=== PATIENT | male | born 1990 | race Caucasian/White ===

== ENCOUNTER 2021-04-07 13:29 | Emergency (ER) | payer OTHER ==
[2021-04-07 13:40] VITALS: BP 113/74
[2021-04-07 13:56] LABS: RAPID STREP SCREEN Negative (Negative)
--- NOTE | 2021-04-07 14:27 | ED Physician Documentation ---
History of Present Illness - Stated complaint Stated Complaint: HEADACHE,SORE THROAT, COUGH - Chief complaint Chief Complaint: General - History obtained from History obtained from: Patient - Additonal information Additional information: Patient comes emergency department chief complaint of dry cough, sore throat, feeling of fever and chills, and body aches for the last 2 weeks since getting the second of his 2 Covid vaccine injections. Patient states that he was not ill prior to getting the vaccine. He lives at home with his who is not been sick. He states he has been working remotely online from home. Patient denies any nausea or vomiting. No diarrhea. He has been taking acetaminophen and Mucinex. No other complaints at this time. Review of Systems Ten Systems: 10 systems reviewed and negative Constitutional: reports: Myalgias Eyes: reports: Reviewed and negative Ears: reports: Reviewed and negative Nose: reports: Rhinorrhea / runny nose, Congestion Throat: reports: Sore throat Cardiac: reports: Reviewed and negative Respiratory: reports: Cough (dry) GI: reports: Reviewed and negative. denies: Nausea, Vomiting : reports: Reviewed and negative Skin: reports: Reviewed and negative Musculoskeletal: reports: Reviewed and negative Neurologic: reports: Reviewed and negative Psychiatric: reports: Reviewed and negative Endocrine: reports: Reviewed and negative Immunocompromised: reports: Reviewed and negative PD PAST MEDICAL HISTORY - Past Medical History Past Medical History: Yes Cardiovascular: None Respiratory: None Neuro: None Endocrine/Autoimmune: None GI: None : None HEENT: None Psych: None Musculoskeletal: None Derm: None - Past Surgical History Past Surgical History: Yes HEENT: Tonsil/Adenoidectomy - Present Medications Home Medications: Ambulatory Orders Medication Instructions Recorded Confirmed No Known Home Medications 04/07/21 04/07/21 - Allergies Allergies/Adverse Reactions: Allergies Allergy/AdvReac Type Severity Reaction Status Date / Time No Known Drug Allergies Allergy Verified 04/07/21 13:36 - Social History Does the pt smoke?: No Smoking Status: Never smoker Does the pt drink ETOH?: Yes Does the pt have substance abuse?: No - Immunizations Immunizations are current?: Yes PD ED PE NORMAL - Vitals Vital signs reviewed: Yes - General General: Alert and oriented X 3, No acute distress, Well developed/nourished - HEENT HEENT: Atraumatic, PERRL, EOMI, Moist mucous membranes, Other (Mild tonsillar erythema, without exudates or enlargement.) - Neck Neck: Supple, no meningeal sign - Cardiac Cardiac: RRR, No murmur, Strong equal pulses - Respiratory Respiratory: No respiratory distress, Clear bilaterally - Abdomen Abdomen: Soft, Non tender, Non distended - Derm Derm: Normal color, Warm and dry, No rash - Extremities Extremities: No deformity, No edema, No calf tenderness / cord - Neuro Neuro: Alert and oriented X 3 - Psych Psych: Normal mood, Normal affect Results - Vitals Vitals: Vital Signs - 24 hr 04/07/21 13:36 Temperature 36.6 C Heart Rate 98 Respiratory 16 Rate Blood Pressure 113/74 O2 Saturation 97 Oxygen O2 Source Room air - Labs Labs: Laboratory Tests 04/07/21 13:40 Group A Strep Rapid Negative PD MEDICAL DECISION MAKING - ED course Complexity details: reviewed results, re-evaluated patient, considered differential, d/w patient ED course: Patient was worked up with Covid test and strep test. Strep was negative. Have instructed patient to quarantine until he gets his Covid results back. We discussed home management of symptoms and usual indications for return. Departure - Departure Disposition: 01 Home, Self Care Clinical Impression: Viral syndrome Condition: Stable Instructions: ED Viral Syndrome Comments: Your strep test is negative. Your Covid test will be back sometime tomorrow, and you may get the results from medical records. In the meantime, quarantine until you have gotten your final results back.The you may use ibuprofen, Tylenol, and [id number] cough medicine till with your symptoms. You may use tea and hot baths to help with your muscle aches and sore throat. Please follow-up with your doctor if you are not feeling better in a week.
== END 2021-04-07 15:27 | disposition home or self-care (01) ==
LOC: ED 13:29 → EDBD 13:29 → ED 15:27
DX: B34.9 Viral infection, unspecified (principal); Z20.822 Contact with and (suspected) exposure to COVID-19
CPT/HCPCS: 87070; 87430; 99283; 99284